=== PATIENT | male | born 1950 | race Caucasian/White ===

== ENCOUNTER 2017-02-24 09:04 | Day surgery (SDC) | payer OTHER ==
[2017-02-24] MEDS ORDERED: diphenhydrAMINE 25 MG CAP PO ONE ×2 (09:05→09:29)
[2017-02-24] MEDS ORDERED: ASPIRIN EC 325 MG TAB PO ONE ×2 (09:05→09:29)
[2017-02-24] MEDS ORDERED: DIAZEPAM 5 MG TAB PO ONE (09:05)
[2017-02-24] MEDS ORDERED: NS 1,000 ML IV ONE (09:05)
[2017-02-24] MEDS ORDERED: FAMOTIDINE 20 MG TAB PO ONE (09:05)
[2017-02-24] MEDS ORDERED: FAMOTIDINE 20 MG TAB ONE (09:29)
[2017-02-24] MEDS ORDERED: DIAZEPAM 5 MG TAB ONE (09:30)
--- NOTE | 2017-02-24 09:39 | CPEKG ---
Heart Rate: 82 RR Interval: 732 P-R Interval: 152 QRSD Interval: 88 QT Interval: 388 QTC Interval: 453 P [place]: 64 QRS [place]: 42 T Wave [place]: 35 EKG Severity - NORMAL ECG - EKG Impression: SINUS RHYTHM Electronically Signed By: Justin Patel 24-Feb-2017 16:21:35
[2017-02-24 09:40] LABS: % IMMATURE GRANULYOCYTES 0.2 % (0.0-1.1); ABSOLUTE IMMATURE GRANULOCYTES 0.01 10^3/uL (0.00-0.10); ADD DIFF? NO; ADD MORPH? NO; ADD SCAN? NO; ATYPICAL LYMPHOCYTE FLAG 20 (0-99); FRAGMENT RBC FLAG 0 (0-99); HEMATOCRIT 45.6 % (40.0-51.0); HEMOGLOBIN 15.2 g/dL (13.7-17.5); LEFT SHIFT FLG 0 (0-99); LIPEMIA HEMOLYSIS FLAG 80 (0-99); MEAN CELL HEMOGLOBIN CONCENTR. 33.3 g/dL (32.4-36.7); MEAN CELL VOLUME 84.1 fL (81.5-99.8); MEAN PLATELET VOLUME 9.8 fL (8.7-11.7); PLATELET CLUMPS FLAG 0 (0-99); PLATELET COUNT 231 10^3/uL (150-400); RED BLOOD CELL COUNT 5.42 10^6/uL (4.40-6.38); RED CELL DISTRIBUTION WIDTH 13.2 % (11.5-15.2)
[2017-02-24 09:49] LABS: INR 1.01 (0.83-1.16); PROTIME(PATIENT) 13.2 SEC (12.0-15.0)
[2017-02-24 10:10] LABS: ANION GAP 12 mEq/L (8-16); CALCIUM 9.6 mg/dL (8.5-10.4); CARBON DIOXIDE 25 mEq/l (22-31); CHLORIDE 106 mEq/L (97-110); CHOLESTEROL 145 mg/dL (140-220); CREATININE 0.9 mg/dL (0.7-1.3); GLOMERULAR FILTRATION RATE > 60; GLUCOSE 96 mg/dL (70-100); HIGH DENSITY LIPOPROTEIN 66 mg/dL (40-65); LDL/HDL RATIO 0.83 RATIO (1.00-3.64); LOW DENSITY LIPOPROTEIN 55 mg/dL (80-100); MAGNESIUM 1.9 mg/dL (1.6-2.3); NON-HIGH DENSITY LIPOPROTEIN 79 mg/dL (90-129); POTASSIUM 4.3 mEq/L (3.5-5.2); SODIUM 143 mEq/L (134-144); TRIGLYCERIDE 123 mg/dL (40-150); VERY LOW DENSITY LIPOPROTEINS 24 mg/dL (8-25)
[2017-02-24] MEDS ORDERED: LIDOCAINE 1% 30 ML SDV ONE (10:43)
[2017-02-24] MEDS ORDERED: VERAPAMIL 5 MG/2 ML VIAL ONE (10:44)
[2017-02-24] MEDS ORDERED: IOPAMIDOL (ISOVUE-370) 150 ML BTL IV ONE ×2 (10:44→11:47)
[2017-02-24] MEDS ORDERED: HEPARIN 10,000 UNIT/10 ML MDV ONE (10:44)
[2017-02-24] MEDS ORDERED: fentaNYL 100 MCG/2 ML INJ ONE ×2 (10:44→11:58)
[2017-02-24] MEDS ORDERED: MIDAZOLAM 2 MG/2 ML VIAL ONE ×3 (10:44→12:19)
--- NOTE | 2017-02-24 14:07 | PDDXCAT ---
Diagnostic Cath Note - . Date: 02/24/17 Intervention: none *Procedure 1. selective coronary angiography 2. left heart catheterization 3. left ventriculogram Indication: Abnormal MPI study showing small moderate severity anterior and moderate mild intensity mid and basal inferior wall reversibility defects suggestive of ischemia. Known previous coronary artery disease with a previously placed stents. Access: Right radial artery. *Materials Left Heart Cath size: 5F Left Heart Cath materials: JR4, JL3.5, pigtail *Findings-Selective Coronary Angiography LM: The left main is 5 mm in size and bifurcates into an LAD and circumflex system. There is no significant LM disease. LAD: There is a 100% occlusion of the LAD diagonal in the region of previous stent implantation with DENISE 0 flow. The LAD has been previously stented. There is no significant in-stent restenosis. LCX: There is a 60% obtuse marginal lesion with DENISE III flow. There are weak left to left collaterals to the LAD diagonal. RCA: The right coronary artery is dominant and ~3 mm in size, It arises anomalously from the right coronary cusp. There are no flow-limiting disease with DENISE III flow. *Findings-Left Heart Catheterization LVEDP: 22 mmHg AO: 135/83/106 mmHg LVEF: 50% LVG: There is basal anterior wall tardokinesis. The visualized portion of the thoracic aorta appears to be within normal limits of size. There are three sinuses of Valsalva consistent with a trileaflet aortic valve. There is no evidence of aneurysm or marco a dissection. *Summary Complications: Radial artery perforation. Estimated blood loss: <50ml Closure method: TR Band Assessment/Conclusion: 1. Multi-vessel coronary artery disease with a known chronic total occlusion of the LAD diagonal. Compared to a cardiac catheterization in 12/24/2007, there is no significant change other than the obtuse marginal region stent restenoses. This lesion was not repaired as the patient was asymptomatic, the nuclear stress test did not show ischemia in this region, and we would like to avoid dual antiplatelet therapy secondary to a wire perforation of the radial artery. The patient also has a history of life threatening GI bleed requiring transfusion. I do not think we should do a procedure that would require a year of dual antiplatelet therapy. 2. There is mild basal anterior wall tardokinesis with mildly reduced ejection fraction at 50%. Patient Problems: Problems Problem Status Onset Bradycardia Acute Chest pain Acute Chronic sinusitis Acute MRSA (methicillin resistant Staphylococcus aureus) Acute 05/08/15
[2017-02-24 17:19] VITALS: BP 134/75; RESP 13; O2SAT 93
== END 2017-02-24 17:19 | disposition home or self-care (01) ==
LOC: FCATH 09:04
PROVIDERS: ATTEND Internal Medicine Cardiovascular Disease
PROC: B2151ZZ Fluoroscopy of Left Heart using Low Osmolar Contrast (ICD-10-PCS; principal; 2017-02-24)
PROC: 4A023N7 Measurement of Cardiac Sampling and Pressure, Left Heart, Percutaneous Approach (ICD-10-PCS; principal; 2017-02-24)
PROC: B2111ZZ Fluoroscopy of Multiple Coronary Arteries using Low Osmolar Contrast (ICD-10-PCS; principal; 2017-02-24)
DX: I25.10 Atherosclerotic heart disease of native coronary artery without angina pectoris (principal); I10 Essential (primary) hypertension; E78.00 Pure hypercholesterolemia, unspecified; Z82.49 Family history of ischemic heart disease and other diseases of the circulatory system; Z95.5 Presence of coronary angioplasty implant and graft
CPT/HCPCS: 93005; 93458; C1769; J1644; J2250; J3010; Q9967

== ENCOUNTER → 2017-03-30 | Outpatient (CLI) | payer OTHER | LOC: FLAB 10:11 | PROVIDERS: ATTEND Orthopaedic Surgery Orthopaedic Surgery of the Spine | DX: M50.31 Other cervical disc degeneration, high cervical region (principal); M50.321 Other cervical disc degeneration at C4-C5 level; M50.322 Other cervical disc degeneration at C5-C6 level; M50.323 Other cervical disc degeneration at C6-C7 level ==

== ENCOUNTER 2017-04-09 10:47 | Emergency (ER) | payer OTHER ==
[2017-04-09] MEDS ORDERED: ACETAMINOPHEN 500 MG TAB ONE (11:11)
--- NOTE | 2017-04-09 11:33 | EDPHY ---
H & P Stated Complaint: fell off ladder/ladder fell cutting r leg/pt feels like tore achilles l leg HPI/ROS: CHIEF COMPLAINT: Fall, Achilles pain, laceration HISTORY OF PRESENT ILLNESS: Patient was working on a ladder approximately 9 feet in the air in his garage. He said the ladder slid down the wall. He said he held onto the wall but then fell. Not entirely sure how he landed, but he felt a sudden onset of pain in the left Achilles and feels that he ruptured. He also sustained lacerations to the right distal thigh and proximal liu. He has no complaints of pain anywhere on his person except his left Achilles tendon. He has no bony tenderness of the right leg. No head or neck injury and no loss of conscious. No chest or back pain. No low back pain. No other associated complaints with this. The pain is worse when he tries to ambulate and unable to bear weight on the left leg. Minimal relief at rest. He has ruptured his Achilles in the past and feels this is the same. Tetanus is up-to- date less than 5 years ago PRIOR ORTHO INJURIES: Achilles tendon rupture ESTABLISHED ORTHOPEDIST: Dr. Pickering REVIEW OF SYSTEMS: Ten systems reviewed and are negative unless otherwise noted in the HPI EXAMINATION General Appearance: Alert, no distress Cardiovascular: Pulses normal throughout. Symmetric radial DP pulses 2+. Brisk cap refill Neurological: A&O, sensory symmetric, strength symmetric Skin: Warm and dry, no rash. Superficial lacerations of the distal right thigh approximately 5 cm in length. Superficial laceration of the right anterior liu, approximately 6 cm in length. There is no exposure of the underlying fascia or muscle at either location. No exposure of the osseous structures on the liu. Neurovascular intact distal to the lacerations. Extremities: No tenderness of the right lower extremity at any point. There is full range of motion of the right hip, knee and ankle. There is tenderness of the left Achilles tendon insertion. No tenderness of the left midfoot, calcaneus or knee. Range of motion is limited due to pain. Negative Carmona sign. He does retain some dorsiflexion of the left ankle. Psychiatric: Mood and affect normal DIFFERENTIAL DIAGNOSES: Including but not limited to Achilles tendon rupture, sprain, strain, fracture, dislocation, lacerations MDM: 11:30 a.m. Mechanical fall with superficial laceration of the right thigh and liu. His primary concern is the left Achilles tendon. On examination there is not evidence of full-thickness tear but he does have some weakness. X-ray has been ordered to the ankle. He is neurovascular intact in both limbs. Tetanus is up- to-date. 12:30 p.m. Mechanical fall with left ankle sprain and possible Achilles enthesopathy. No full-thickness fractures appreciated on examination. There is no abnormality on the x-ray as interpreted by radiologist. Proceed with irrigation closure of the lacerations 1:50 p.m. Lacerations of the distal right thigh proximal right liu. He has been irrigated and closed without complication. He will be placed in a [place] boot and provided crutches. He is nonweightbearing on left lower extremity in thus he is pain-free or seen by Orthopedics. Suspect a partial thickness involvement of the Achilles tendon. He is comfortable with this plan and discharged home neurovascular, stable condition. Structures for the lacerations. He is to return here in 7 days for suture removal. He is comfortable with this plan PROCEDURE: Laceration repair #1 Consent: Verbal Location: Right thigh, distally Length of repair: 2 cm Complexity: Simple Layer involvement: Single Anesthesia: Local, 1% lidocaine with epinephrine, 5 mL Irrigation: Extensive Debridement: None Procedure description: Following good anesthesia, the wound was copiously irrigated. Wound bed was explored and there is no foreign body noted. Wound borders were approximated well with good hemostasis. Tolerated well without complication. Suture/Staple material: 4-0 Prolene, 3 simple ruptured sutures Wound care: Routine as discussed Suture/Staple removal: 7 Days PROCEDURE: Laceration repair 2. Consent: Verbal Location: Right proximal liu, anterior Length of repair: 2 cm Complexity: Simple Layer involvement: Single Anesthesia: Local, 1% lidocaine plain, 5 mL Irrigation: Extensive Debridement: None Procedure description: Following good anesthesia, the wound was copiously irrigated. Wound bed was explored and there is no foreign body noted. Wound borders were approximated well with good hemostasis. Tolerated well without complication. Suture/Staple material: 4-0 Prolene, 3 simple interrupted sutures Wound care: Routine as discussed Suture/Staple removal: Days ED Precautions: Worsening pain. Erythema, edema, cyanosis, pallor, paresthesia or anesthesia. SUPERVISION: This patient was independently evaluated without direct examination by the attending physician. Case was discussed with attending physician. Source: Patient, Family Exam Limitations: No limitations - Personal History Current Tetanus/Diphtheria Vaccine: Yes - Medical/Surgical History Hx Asthma: No Hx Chronic Respiratory Disease: No Hx Diabetes: No Hx Cardiac Disease: Yes Hx Renal Disease: No Hx Cirrhosis: No Hx Alcoholism: No Hx HIV/AIDS: No Hx Splenectomy or Spleen Trauma: No Other PMH: CAD, 9 stents, - Social History Smoking Status: Never smoked Constitutional: Initial Vital Signs Temperature (C) 98.1 F 04/09/17 10:51 Heart Rate 84 04/09/17 10:51 Respiratory Rate 17 04/09/17 10:51 Blood Pressure 151/83 H 04/09/17 10:51 O2 Sat (%) 93 04/09/17 10:51 O2 Delivery Mode Room Air Allergies/Adverse Reactions: No Known Allergies Allergy (Verified 04/09/17 10:48) Home Medications: Medication Instructions Recorded Ascorbic Acid [Vitamin C 250 mg 250 mg PO DAILY 11/07/14 (*)] Cholecalciferol Vit D3 [Vitamin D3 1,000 units PO DAILY 11/07/14 (*)] Clopidogrel Bisulfate [Plavix (*)] 75 mg PO DAILY 11/07/14 Diltiazem Cd [Cardizem ER Q24hr] 180 mg PO BID 11/07/14 Ezetimibe [Zetia 10 MG (*)] 10 mg PO DAILY18 11/07/14 Herbals/Supplements -Info Only 1 ea PO AD 11/07/14 Ranolazine [Ranexa] 500 mg PO BID 11/07/14 Rosuvastatin Calcium [Crestor 40mg 40 mg PO DAILY18 11/07/14 (*)] Hydrocodone/APAP 5/325 [Reading 1 - 2 tab PO Q4H PRN #20 tab 04/09/17 5/325 (*)] Medical Decision Making - Diagnostics Imaging Results: Imaging Impressions Ankle X-Ray 04/09/17 11:32 Impression: There is no acute osseous abnormality. If there is further clinical concern regarding an Achilles tendon injury, MR imaging could be considered. Departure - Departure Disposition: Home, Routine, Self-Care Clinical Impression: Laceration Achilles tendon injury Qualifiers: Encounter type: initial encounter Laterality: left Qualified Code(s): S86.002A - Unspecified injury of left Achilles tendon, initial encounter Condition: Good Instructions: Laceration (ED), Achilles Tendon Rupture (ED), Achilles Tendinitis (ED) Additional Instructions: 1. Nonweightbearing on the extremity until seen by Orthopedics. Usual crutches and boot as provided 2. Prescription medication for pain as needed as prescribed only 3. Daily wound care to the right lacerations as discussed 4. Return here in 7 days for suture removal 5. Return sooner for signs of infection as discussed if needed Referrals: Vijay Potter MD [Primary Care Provider] - As per Instructions Zandra Pickering MD [Medical Doctor] - As per Instructions Prescriptions: Hydrocodone/APAP 5/325 [Reading 5/325 (*)] 1 - 2 tab PO Q4H PRN #20 tab PRN Reason: Pain, Moderate
[2017-04-09 12:59] VITALS: O2SAT 94
[2017-04-09 14:05] VITALS: BP 148/82; PULSE 76; RESP 14; TEMP 97.9
== END 2017-04-09 14:04 | disposition home or self-care (01) ==
PROC: 0HQKXZZ Repair Right Lower Leg Skin, External Approach (ICD-10-PCS; principal; 2017-04-09)
PROC: 0HQHXZZ Repair Right Upper Leg Skin, External Approach (ICD-10-PCS; principal; 2017-04-09)
DX: S71.111A Laceration without foreign body, right thigh, initial encounter (principal); S86.022A Laceration of left Achilles tendon, initial encounter; S81.811A Laceration without foreign body, right lower leg, initial encounter; I25.10 Atherosclerotic heart disease of native coronary artery without angina pectoris; Z95.5 Presence of coronary angioplasty implant and graft; W11.XXXA Fall on and from ladder, initial encounter
CPT/HCPCS: 12004; 73610; 99283; L4386

== ENCOUNTER → 2018-06-15 | Outpatient (CLI) | payer OTHER | LOC: CIMAGING 08:03 | PROVIDERS: ATTEND Internal Medicine | DX: R06.09 Other forms of dyspnea (principal); I65.23 Occlusion and stenosis of bilateral carotid arteries | CPT/HCPCS: 71046-PO; 93880-PO ==

== ENCOUNTER 2019-02-27 11:57 | Emergency (ER) | payer OTHER ==
--- NOTE | 2019-02-27 12:40 | EDPHY ---
H & P Smoking Status: Never smoked Time Seen by Provider: 02/27/19 12:12 HPI/ROS: CHIEF COMPLAINT: Chest pain HISTORY OF PRESENT ILLNESS: Patient is a 68-year-old male with a history of significant coronary artery disease and numerous stents who presents emergency department with "angina." Patient states that he regularly has angina but over the past 10 days it is significantly worsen. He has intermittent chest pain. His chest pain does not radiate. He describes a generalized sense of weakness and fatigue. He also feels short of breath. His symptoms are not associated with exercise or exertion. Patient has chronic leg pain from back problems. He denies any new leg symptoms. He has no recent travel history. REVIEW OF SYSTEMS: 10 systems were reveiwed and are negative with the exception of the elements mentioned in the history of present illness. (Alda Monsivais) Past Medical/Surgical History: Includes coronary artery disease Past surgical history: Stent placement Social history: Patient does not smoke (Alda Monsivais) Physical Exam: Vitals noted GENERAL: Well-appearing, in no acute distress, alert. HEENT: Eyes normal to inspection, normal pharynx, no signs of dehydration. NECK: Normal, supple. RESPIRATORY: Clear to auscultation bilaterally, no rales, rhonchi or wheezing. CVS: Regular rate and rhythm, no rubs, murmurs, or gallops. ABDOMEN: Soft, nontender, nondistended, no organomegaly. BACK: Normal to inspection, no CVA tenderness. SKIN: Normal color, no rash, warm, dry. No pallor. EXTREMITIES: No pedal edema, no calf tenderness, no Homans sign or cords, no joint swelling. NEURO/PSYCH: Alert and oriented, normal mood and affect, normal motor sensory exam. (Alda Monsivais) Constitutional: Initial Vital Signs Temperature (C) 37.2 C 02/27/19 11:58 Heart Rate 92 02/27/19 11:58 Respiratory Rate 16 02/27/19 11:58 Blood Pressure 155/98 H 02/27/19 11:58 O2 Sat (%) 94 02/27/19 11:58 O2 Delivery Mode Room Air Allergies/Adverse Reactions: No Known Allergies Allergy (Verified 04/09/17 10:48) Home Medications: Medication Instructions Recorded Ascorbic Acid [Vitamin C 250 mg 250 mg PO DAILY 11/07/14 (*)] Cholecalciferol Vit D3 [Vitamin D3 1,000 units PO DAILY 11/07/14 (*)] Clopidogrel Bisulfate [Plavix (*)] 75 mg PO DAILY 11/07/14 Diltiazem Cd [Cardizem ER Q24hr] 180 mg PO BID 11/07/14 Ezetimibe [Zetia 10 MG (*)] 10 mg PO DAILY18 11/07/14 Herbals/Supplements -Info Only 1 ea PO AD 11/07/14 Ranolazine [Ranexa] 500 mg PO BID 11/07/14 Rosuvastatin Calcium [Crestor 40mg 40 mg PO DAILY18 11/07/14 (*)] Coq-10 02/27/19 Medical Decision Making - Diagnostics Imaging Results: Imaging Impressions Chest X-Ray 02/27/19 12:41 Impression: 1. Clear lungs. No acute process. 2. Stigmata of coronary artery disease. ED Course/Re-evaluation: In the emergency department discussed possible etiologies with the patient. Answered all his questions. IV was placed. Laboratory studies, EKG and chest x -ray were obtained. Patient was given aspirin orally. EKG shows normal sinus rhythm, normal rate, normal axis, normal intervals. There are no ST or T-wave abnormalities. Patient's CBC is notable for an elevated white count [id number]. Chemistry is notable for slightly CO2 of 20. BUN is elevated 38. Troponin is negative. D- dimer is negative. Chest x-ray: No acute disease noted. I discussed case with Dr. Patel from Cardiology. He initially recommended admission for the patient. However, the patient was not keen on the idea being admitted. He would prefer outpatient evaluation. I read contacted Dr. Patel. The Cardiology PA came to the emergency department evaluate the patient. She will consult with Dr. Patel. I discussed the case briefly with Dr. Posada. He will enter in the planned disposition of Dr. Patel (Alda Monsivais) 4:40 p.m. The patient is currently symptom free. He tells me that Dr. Patel is on his way to speak with him. 5:[address] Patel has just arrived. Will repeat troponin. 5:[address] Patel spoke with the patient and encouraged admission. We both encouraged admission for expedited coronary artery workup in this patient with a significant coronary history. He again refuses and will follow up as an outpatient. We do suspect that this may be esophageal. He had a previous esophageal clip and may have strictures now. He does seem to be symptomatic when he swallows. He will follow up with GI for scoping as well. (Nick Posada) Differential Diagnosis: My differential includes but is not limited to ACS, acute OH, angina, GERD, peptic ulcer disease, pneumonia, pulmonary embolus (Alda Monsivais) - Data Points Laboratory Results: Laboratory Results 02/27/19 11:25 02/27/19 11:25 02/27/19 02/27/19 02/27/19 17:55 12:21 11:25 WBC RBC Hgb Hct MCV MCH MCHC RDW Plt Count MPV Neut % (Auto) Lymph % (Auto) [place] % (Auto) Eos % (Auto) Baso % (Auto) Nucleat RBC Rel Count Absolute Neuts (auto) Absolute Lymphs (auto) Absolute Monos (auto) Absolute Eos (auto) Absolute Basos (auto) Absolute Nucleated RBC Immature Gran % Seg Neutrophils % Band Neutrophils % Lymphocytes % Monocytes % Eosinophils % Basophils % Metamyelocytes % Myelocytes % Promyelocytes % Blast Cells % Immature Gran # Absolute Seg Neuts Absolute Band Neuts Absolute Lymphocytes Absolute Monocytes Absolute Eosinophils Absolute Basophils Absolute Metamyelocyte Absolute Myelocytes Absolute Promyelocytes Absolute Plasma Cells Nucleated RBCs RBC/WBC/PLT Morphology Absolute Blast Cells Plasma Cells % Platelet Estimate PT INR APTT Sodium 136 mEq/L mEq/L (135-145) Potassium 4.6 mEq/L mEq/L (3.5-5.2) Chloride 104 mEq/L mEq/L (97-110) Carbon Dioxide 20 mEq/l L mEq/l (22-31) Anion Gap 12 mEq/L mEq/L (6-14) BUN 38 mg/dL H mg/dL (7-23) Creatinine 1.1 mg/dL mg/dL (0.7-1.3) Estimated GFR > 60 Glucose 113 mg/dL H mg/dL (70-100) Calcium 9.6 mg/dL mg/dL (8.5-10.4) POC Troponin I 0.00 ng/mL ng/mL 0.00 ng/mL ng/mL (0.00-0.08) (0.00-0.08) 02/27/19 02/27/19 11:25 11:25 WBC 17.57 10^3/uL H 10^3/uL (3.80-9.50) RBC 5.78 10^6/uL 10^6/uL (4.40-6.38) Hgb 16.6 g/dL g/dL (13.7-17.5) Hct 47.8 % % (40.0-51.0) MCV 82.7 fL fL (81.5-99.8) MCH 28.7 pg pg (27.9-34.1) MCHC 34.7 g/dL g/dL (32.4-36.7) RDW 13.1 % % (11.5-15.2) Plt Count 277 10^3/uL 10^3/uL (150-400) MPV 9.7 fL fL (8.7-11.7) Neut % (Auto) Not Reported Lymph % (Auto) Not Reported [place] % (Auto) Not Reported Eos % (Auto) Not Reported Baso % (Auto) Not Reported Nucleat RBC Rel Count Not Reported Absolute Neuts (auto) Not Reported Absolute Lymphs (auto) Not Reported Absolute Monos (auto) Not Reported Absolute Eos (auto) Not Reported Absolute Basos (auto) Not Reported Absolute Nucleated RBC Not Reported Immature Gran % Not Reported Seg Neutrophils % 78.0 % % Band Neutrophils % 0.0 % % Lymphocytes % 12.0 % % Monocytes % 10.0 % % Eosinophils % 0.0 % % Basophils % 0.0 % % Metamyelocytes % 0.0 % % Myelocytes % 0.0 % % Promyelocytes % 0.0 % % Blast Cells % 0.0 % % Immature Gran # Not Reported Absolute Seg Neuts 13.70 10^3/uL H 10^3/uL (1.70-6.50) Absolute Band Neuts 0.00 10^3/uL 10^3/uL (0.00-0.70) Absolute Lymphocytes 2.11 10^3/uL 10^3/uL (1.00-3.00) Absolute Monocytes 1.76 10^3/uL H 10^3/uL (0.30-0.80) Absolute Eosinophils 0.00 10^3/uL L 10^3/uL (0.03-0.40) Absolute Basophils 0.00 10^3/uL L 10^3/uL (0.02-0.10) Absolute Metamyelocyte 0.00 10^3/mL 10^3/mL (0.00-0.00) Absolute Myelocytes 0.00 10^3/mL 10^3/mL (0.00-0.00) Absolute Promyelocytes 0.00 10^3/uL 10^3/uL (0.00-0.00) Absolute Plasma Cells 0.00 10^3/uL 10^3/uL (0.00-0.00) Nucleated RBCs 0 /100 WBC /100 WBC (0-0) RBC/WBC/PLT Morphology NORMAL (NORMAL) Absolute Blast Cells 0.00 10^3/uL 10^3/uL (0.00-0.00) Plasma Cells % 0.0 % % Platelet Estimate ADEQUATE (ADEQ) PT 12.7 SEC SEC (12.0-15.0) INR 0.99 (0.83-1.16) APTT 23.1 SEC SEC (23.0-38.0) Sodium Potassium Chloride Carbon Dioxide Anion Gap BUN Creatinine Estimated GFR Glucose Calcium POC Troponin I Medications Given: Discontinued Medications Aspirin (Aspirin) 324 mg PO EDNOW ONE Stop: 02/27/19 12:42 Last Admin: 02/27/19 12:50 Dose: Not Given Point of Care Test Results: Chemistry 02/27/19 02/27/19 17:55 12:21 POC Troponin I 0.00 ng/mL ng/mL 0.00 ng/mL ng/mL (0.00-0.08) (0.00-0.08) Departure - Departure Disposition: Home, Routine, Self-Care Clinical Impression: Chest pain Qualifiers: Chest pain type: unspecified Qualified Code(s): R07.9 - Chest pain, unspecified Condition: Good Instructions: Chest Pain (ED) Additional Instructions: Return with increasing chest pain, shortness of breath, weakness, numbness or any other concerns. Referrals: Alberto Oh MD [Primary Care Provider] - As per Instructions Trevor Bolton MD [Medical Doctor] - 5-7 days, call for appt. Justin Patel MD [Medical Doctor] - 1-2 days without fail
[2019-02-27] MEDS ORDERED: ASPIRIN 81 MG CHEWABLE TAB PO ONE (12:41)
[2019-02-27 12:50] LABS: PLATELET COUNT 277 10^3/uL (150-400)
[2019-02-27 13:06] LABS: INR 0.99 (0.83-1.16); PROTIME(PATIENT) 12.7 SEC (12.0-15.0)
--- NOTE | 2019-02-27 14:47 | CPEKG ---
Test Reason : OPEN Blood Pressure : / mmHG Vent. Rate : 084 BPM Atrial Rate : 084 BPM P-R Int : 116 ms QRS Dur : 090 ms QT Int : 383 ms P-R-T Axes : 002 042 038 degrees QTc Int : 453 ms Sinus rhythm Ventricular trigeminy Confirmed by Alda Monsivais ([id number]) on 02/27/2019 2:46:28 PM Referred By: Alda Monsivais Confirmed By:Alda Monsivais
--- NOTE | 2019-02-27 17:49 | GCON ---
[f rep st] CONSULTATION DATE OF CONSULTATION: 02/27/2019 CHIEF COMPLAINT: Chest pain. HISTORY OF PRESENT ILLNESS: The patient is a 68-year-old male with a history of coronary artery dise ase, who presents to the hospital complaining of chest pain and dyspnea on exertion. His cardiac his tory began approximately 10 years ago, at which time he had multiple stents placed. The following ye ar, he again had 4 to 5 stents placed. His last cardiac catheterization was done in February 2017, second tian to an abnormal nuclear stress test. At that time, he had a totally occluded LAD diagonal, 60% st enosis to the left circ OM and no significant disease of the right coronary artery. There was no sig nificant change from his prior cath in 2007, and therefore, no intervention was done. He presents to day complaining of 10 days of feeling like there is a knot in his chest. This occurs after drinking and eating food and he gets a sensation of something being stuck in his throat. Today is an exceptio n because he has not eaten all day, but does have that chest discomfort. He tries to be as active as possible and exercises on the elliptical machine every other day for 30 minutes. He was not having any problem exercising until approximately 2-3 weeks ago when he has had more dyspnea on exertion. O n occasion, he was only able to exercise for 6 minutes due to shortness of breath and fatigue. His w marj blood cell count is elevated at 17.5. His initial troponin is negative. An EKG shows normal si nus rhythm with PVCs occurring in trigeminy. A chest x-ray was negative for any acute cardiopulmonar y disease. PAST MEDICAL HISTORY: Hyperlipidemia, coronary artery disease as stated above, life-threatening GI b leed requiring transfusions. FAMILY HISTORY: He has a strong family history of coronary artery disease and premature coronary art charli disease. SOCIAL HISTORY: He denies any ongoing tobacco use. He is currently retired. He does state that he is under a lot of stress. HOME MEDICATIONS: Crestor, Zetia, diltiazem, Ranexa, Plavix, vitamin D3, vitamin C, herbal supplemen ts. ALLERGIES: No known drug allergies. REVIEW OF SYSTEMS: A 10-point review of systems is negative except for what is stated in the H and P . PHYSICAL EXAMINATION: GENERAL: The patient appears in no acute distress. VITALS: Blood pressure 1 62/101, heart rate 74, oxygen saturation 94% on room air. Afebrile. NECK: No carotid bruits or JVD present. LUNGS: Clear to auscultation. No wheezes, rhonchi, or crackles auscultated. CARDIAC: R egular rate and rhythm, without any significant murmurs, rubs, or gallops appreciated. ABDOMEN: Dis tended without any tenderness to palpation. EXTREMITIES: Palpable pulses without any evidence of ed alanna. NEUROLOGIC: Nonfocal. PSYCHIATRIC: Mood and affect appropriate. SKIN: No obvious rashes or ecchymosis identified. LABORATORY DATA: Troponin negative x1. His white blood cell count is elevated at 17.5. DIAGNOSTIC STUDIES: Chest x-ray reveals normal sinus rhythm without any acute ST-T wave changes. Hi s chest x-ray is negative for acute cardiopulmonary disease. ASSESSMENT: The patient is a 68-year-old male with a history of coronary artery disease, who present s with chest pain and dyspnea on exertion. PLAN: The patient's symptoms of chest pain seem more consistent with a GI etiology. His symptoms ar e worse with eating and drinking. He is having chest discomfort today, which is not associated with food. He is also complaining of dyspnea on exertion, which has been present for the past 2-3 weeks, which is concerning for angina. His initial troponin is negative. An EKG is nonischemic, but given his history of coronary disease, I do think he should be admitted and ruled out for a myocardial infa rction. If his troponins are negative, I would plan for a nuclear stress test the following morning. He is also hypertensive, which may be related to increased stress with being in the hospital. I have recommended admission, but the patient is currently refusing. Dr. Patel has made the decision to s peak with the patient this afternoon; will hopefully be able to convince him to be admitted for [facility] assessment. /[id number]/MODL
[2019-02-27 18:15] VITALS: BP 150/94
== END 2019-02-27 18:14 | disposition home or self-care (01) ==
DX: R07.9 Chest pain, unspecified (principal); I25.10 Atherosclerotic heart disease of native coronary artery without angina pectoris; E78.5 Hyperlipidemia, unspecified; Z95.5 Presence of coronary angioplasty implant and graft
CPT/HCPCS: 84484-ER

== ENCOUNTER → 2019-03-21 | Outpatient (CLI) | payer OTHER | LOC: CIMAGING 08:41 ==